=== PATIENT | female | born 1970 ===

== ENCOUNTER 2020-03-09 07:38 | Day surgery (SDC) | payer OTHER ==
[~2020-03-09 07:38] MED LIST: SODIUM CHLORIDE 0.9% 1000 ML 1,000 ML IV SCH
--- NOTE | 2020-03-09 09:08 | Anesthesia Consultation ---
Anesthesia Consult and Med Hx Date of service: 03/09/20 - Airway Anesthetic Teeth Evaluation: Good ROM Head & Neck: Adequate Mental/Hyoid Distance: Inadequate Mallampati Class: Class III Intubation Access Assessment: Possibly Difficult - Pulmonary Exam CTA: Yes - Pre-Operative Health Status ASA Pre-Surgery Classification: ASA3 Proposed Anesthetic Plan: MAC - Pulmonary Hx Smoking: No Hx Asthma: No Hx Respiratory Symptoms: No COPD: No Hx Sleep Apnea: Yes (Does not use CPAP machine) - Cardiovascular System Hx Hypertension: Yes Hx Heart Attack/AMI: No Hx Angina: No Hx Pacemaker: No - Central Nervous System Hx Neuromuscular Disorder: No Hx Seizures: No CVA: No Hx Psychiatric Problems: Yes (Anxiety and Depression) - Gastrointestinal Hx Gastroesophageal Reflux Disease: Yes - Endocrine Hx Renal Disease: No Hx Liver Disease: Yes (Fatty Liver) Hx Insulin Dependent Diabetes: No Hx Non-Insulin Dependent Diabetes: No Hx Thyroid Disease: No - Hematic Hx Anemia: No Hx Sickle Cell Disease: No - Other Systems Hx Alcohol Use: No Hx Substance Use: No Hx Obesity: Yes (BMI 43.8kg) - Additional Comments Anesthesia Medical History Comments: Denied previous anesthesia complications
--- NOTE | 2020-03-09 09:10 | Anesthesia Day of Surgery ---
Anesthesia Day of Surgery - Day of Surgery Patient Examined: Yes Patient H&P Reviewed: Yes Patient is NPO: Yes Beta Blockers: No Cardiac Clearance: No Pulmonary Clearance: No
[2020-03-09] MEDS ORDERED: propofoL 200 MG/20 ML VIAL IV ONE ×3 (09:46→10:25)
[2020-03-09] MEDS ORDERED: SODIUM CHLORIDE 0.9% 1000 ML IV SOLN IV ONE (10:21)
--- NOTE | 2020-03-09 10:42 | Procedure Note ---
Date of procedure: 03/09/20 Pre-op diagnosis: GERD and Abdominal Pain Post-op diagnosis: other (Mild to Moderate Erosive Esophagitis/Gastritis/R/O Celiac disease/ R/o Eosinophilc Esophagitis/ Proximal colon Diverticuli/ R/O Microscopic colitis/ No Colon Polyps noted) Procedure: EGD with Biopsy/ Colonoscopy with Biopsy Anesthesia: MICHAEL Surgeon: OREN FAYE Estimated blood loss: minimal Pathology: list Specimen disposition: to lab Condition: stable Disposition: same day (Treat PPI,prn Bentyl for pain and OTC Probiotic and encourage the patient to take Probiotics. Avoid aspirin and NSAID for 5 days; otherwise resume home medication and follow upin 1 to 2 weeks ([phone]).)
--- NOTE | 2020-03-09 10:43 | Operative Report ---
PROCEDURE: Esophagogastroduodenoscopy with biopsy. INDICATIONS: This is a 49-year-old female who has been complaining of some GERD symptoms and abdominal pain. EGD was done to make sure there was not any significant upper GI pathology that would account for the patient's complaints. DESCRIPTION OF PROCEDURE: The procedure was done after getting informed consent with MAC anesthesia. Instrument was passed through the hypopharynx into the esophagus, which showed [id number] erosive esophagitis. Stomach showed gastritis. Pylorus was patent. Duodenum in the first and second portion appeared normal. Biopsy was done from the second part to rule out for possible celiac disease. Additional biopsy was done from the gastric antrum and gastric body to rule out for H. pylori and atrophic gastritis. Biopsy was also done from the distal esophagus and mid esophagus for erosive esophagitis and for eosinophilic esophagitis. ASSESSMENT: Gastroesophageal reflux disease symptoms, mild to moderate erosive esophagitis, gastritis, rule out celiac disease, rule out eosinophilic esophagitis. PLAN: To wait for the biopsy results. Further treatment adjustment will be according to the biopsy findings. Have the patient avoid aspirin and aspirin-related products for the next 5 days. Otherwise, resume home medication. Treat the patient with PPI, p.r.n. dose of Bentyl and probiotics and have the patient follow up in the office in 1-2 weeks' time. A colonoscopy will also be done for further evaluation of the patient's abdominal pain. The procedure was done in the GI lab with assistance of the GI lab team, which included the GI nurse, simulation technician and with assistance of Anesthesia. [facility]# [id number] AUBREY/UYEN
--- NOTE | 2020-03-09 10:45 | Operative Report ---
PROCEDURE: Colonoscopy. INDICATIONS: A 49-year-old female who has been having abdominal pain. EGD showed [id number] erosive esophagitis, gastritis. Biopsy was also done to rule out for possible celiac disease and eosinophilic esophagitis. Colonoscopy was done to make sure there was not any significant lower GI pathology accounting for the patient's abdominal pain. DESCRIPTION OF PROCEDURE: Instrument was passed through the rectum onto the cecum, which was identified with ileocecal valve and the appendiceal orifice. Visualization was fair to good. There was moderate diverticula noted in the proximal colon, which may have contributed to the patient's pain. The cecum, ascending colon, transverse colon, descending colon except for a few diverticula in the proximal colon as well as the sigmoid showed normal mucosa. Random biopsies were done to rule out for possible microscopic colitis and the rectum appeared normal on the retroverted view. There was minimal bleeding associated with the procedure. No complications associated with the procedure. ASSESSMENT: Abdominal pain, rule out microscopic colitis. Proximal colon diverticula. PLAN: To encourage the patient to take probiotics. Avoid aspirin and aspirin-related products for the next 4-5 days. Treat the patient with p.r.n. dose of Bentyl and PPI because of the EGD findings of esophagitis, gastritis. Encourage the patient to take fiber supplements and follow up in the office in 1-2 weeks' time. The procedure was done in the GI lab with assistance of the GI lab team, which included the GI nurse, the metal room dental technician and with assistance of Anesthesia. JOB# [id number] AUBREY/UYEN
[2020-03-09 11:10] VITALS: BP 119/70
--- NOTE | 2020-03-09 14:39 | Post Anesthesia Evaluation ---
- Post Anesthesia Evaluation Patient Participated: Yes Airway Patent: Yes Stable Respiratory Function: Yes Nausea/Vomiting: No Temp > 96.8F: Yes Pain Manageable: Yes Adequeate Hydration: Yes Anesthesia Complications: No Block Receding Appropriately: Not Applicable Patient on Ventilator: No
== END 2020-03-09 07:39 | disposition home or self-care (01) ==
LOC: GIO 07:38
DX: R10.9 Unspecified abdominal pain (principal); K21.00 Gastro-esophageal reflux disease with esophagitis, without bleeding; K57.30 Diverticulosis of large intestine without perforation or abscess without bleeding; K31.89 Other diseases of stomach and duodenum; K29.70 Gastritis, unspecified, without bleeding; K63.89 Other specified diseases of intestine; I10 Essential (primary) hypertension; G47.30 Sleep apnea, unspecified; E66.9 Obesity, unspecified; E78.5 Hyperlipidemia, unspecified; K76.0 Fatty (change of) liver, not elsewhere classified; Z80.1 Family history of malignant neoplasm of trachea, bronchus and lung; Z79.899 Other long term (current) drug therapy; Z68.41 Body mass index [BMI] 40.0-44.9, adult; Z90.49 Acquired absence of other specified parts of digestive tract
CPT/HCPCS: 43239; 45380; 88305; 88342; J2704; J7030